=== PATIENT | male | born 1995 | race Two or more races ===

== ENCOUNTER 2018-03-07 16:26 | Emergency (ER) | payer OTHER ==
[~2018-03-07] VITALS: Ht 165.1 cm; Wt 74.5 kg
[2018-03-07 16:33] VITALS: Ht 165.1 cm; Wt 74.5 kg
[2018-03-07 18:48] VITALS: BP 145/72
== END 2018-03-07 18:48 | disposition home or self-care (01) ==
LOC: ED 16:26
DX: R10.31 Right lower quadrant pain (principal)